=== PATIENT | female | born 1980 | race Caucasian/White ===

== ENCOUNTER 2024-05-25 17:34 | Observation (INO) ==
--- NOTE | 2024-05-25 17:58 | Emergency Department Note ---
Impression & Plan Chest pain, Elevated troponin, Syncope, D-dimer, elevated ED Provider Note NAME: RICK RIBEIRO AGE: 43 SEX: F : 1980 ARRIVES VIA: Walk-In INFORMANT: Patient ED PROVIDER(S): Kurtis Lopez DO CHIEF COMPLAINT: syncope HPI: Patient is a 43-year-old female who presents to the ER for syncopal episode. Patient notes that she woke up on the couch and does not remember what happened. She notes this has been having once a month for the past 6 months. Denies any headache or change in vision. No chest pain or shortness of breath. No nausea, vomiting or diarrhea. She notes 1 of these episodes she did bite her tongue. When she wakes up she generally does not know where she is. She has an appointment with neurology coming up. Has had an MRI of her brain per mom who is present at bedside. ADDITIONAL HISTORY OBTAINED: Per HPI Chronic Medical/Social Conditions Affecting Care: Per HPI PAST MEDICAL HISTORY:See Below PAST SURGICAL HISTORY:See Below FAMILY HISTORY:See Below SOCIAL HISTORY:See Below HOME MEDICATIONS:See Below ALLERGIES:See Below VITALS:See Below PHYSICAL EXAMINATION: GENERAL: Sitting up in bed, alert, well appearing, well nourished, no distress, non-toxic EYE EXAM: normal conjunctiva. PERRL and EOM's grossly intact. OROPHARYNX: no exudate, no erythema, lips, buccal mucosa, and tongue normal and mucous membranes are moist NECK: supple, no nuchal rigidity, no adenopathy, non-tender LUNGS: Clear to auscultation. Normal chest wall mechanics HEART: no murmurs, S1 normal and S2 normal ABDOMEN: abdomen soft, non-tender, normo-active bowel sounds, no masses, no rebound or guarding. BACK: Back is symmetrical on inspection and there is no deformity, no midline tenderness, no CVA tenderness. SKIN: no rashes and no bruising UPPER EXTREMITIES: upper extremities are grossly normal. LOWER EXTREMITIES: No pitting edema. NEURO EXAM: Normal sensorium, cranial nerves II-XII intact, normal speech, no weakness of arms, no weakness of legs. No drift. Finger to nose intact. Gross sensation intact. MEDICAL DECISION MAKING: Patient is a 43-year-old female who presents to the ER for syncopal episode in combination with chest pain following the episode. IV was established blood work is obtained. Labs show leukocytosis of 22,000. No significant anemia. D- dimer was elevated at 1700. BMP with LFTs bilirubin was unremarkable. Troponin elevated at 25. TSH unremarkable. CK was normal. UA was clean. CT of the chest showed no PEs and no infectious process. She was positive for marijuana. Alcohol negative. Patient was discussed with the hospitalist after receiving IV fluids due to the elevated troponin syncope and chest pain. Consults/Care Managements Discussions: Per [facility] Triage Nursing notes reviewed. Limited review of prior medical records performed Vital Signs: reviewed and remarkable for HTN Differential diagnosis: Differential diagnosis includes etiologies such as vasovagal event, infection, hypoglycemia, electrolyte abnormalities, cardiac sources, intracerebral event, toxicologic, neurologic, as well as others were entertained. ER treatment provided: See below Diagnostics interpreted by me include EKG and cardiac monitoring as listed below: -Cardiac Monitoring: An order was placed for continuous cardiac monitoring. The monitor shows a rate of 90 with sinus rhythm. -ECG: Sinus rhythm rate 88 Normal axis No PVCs QTc 440 -Laboratory studies:Interpreted by me as stated above in MDM and shown below. Imaging studies: Xrays: As interpreted by me: Portable AP upright 1 view of the chest shows no focal M-Trate CTs show: CT of the head was negative CT angio the chest was negative Procedures:none Critical Care: None Past Med/Surg History Problem List (Updated 05/25/24 @ 22:12 by Kurtis Lopez DO) D-dimer, elevated (Acute) Syncope (Acute) Elevated troponin (Acute) Chest pain (Acute) Social History Smoking Status: Current every day smoker Feels Safe at Home: Yes Allergies Allergies Allergy/AdvReac Type Severity Reaction Status Date / Time naproxen [From Aleve] Allergy Intermediate Anaphylaxis Verified 05/25/24 18:50 Home Meds Home Medications Medication Instructions Recorded Confirmed losartan 100 mg tablet 100 mg PO DAILY 05/25/24 05/25/24 metoprolol succinate 25 mg 25 mg PO HS 05/25/24 05/25/24 tablet,extended release 24 hr Results & Data (ED) Vital Signs Vital Signs - 24 hr 05/25/24 17:40 05/25/24 18:00 05/25/24 18:00 Temperature 36.6 C Temperature Source Temporal Artery Scan Pulse Rate 87 72 79 Pulse Rate [Apical] Respiratory Rate 20 19 Respiratory Effort / Characteristics Non-Labored Respiratory Depth Normal Blood Pressure 159/103 H 151/98 H Blood Pressure [Left Arm] Blood Pressure Mean 121 124 Blood Pressure Mean [Left Arm] Pulse Oximetry 98 Oxygen Delivery Method Room Air Sepsis Recent Fever Within 48 Hours No Sepsis New/Unexplained Change in Mental Status No Sepsis Action Taken by Nursing No Action Required 05/25/24 18:30 05/25/24 19:00 05/25/24 20:01 Temperature Temperature Source Pulse Rate 77 73 Pulse Rate [Apical] 77 Respiratory Rate 16 16 16 Respiratory Effort / Characteristics Respiratory Depth Blood Pressure 155/95 H 149/94 H Blood Pressure [Left Arm] 161/99 H Blood Pressure Mean 122 121 Blood Pressure Mean [Left Arm] 119 Pulse Oximetry 99 100 98 Oxygen Delivery Method Room Air Sepsis Recent Fever Within 48 Hours Sepsis New/Unexplained Change in Mental Status Sepsis Action Taken by Nursing 05/25/24 20:48 05/25/24 21:32 05/25/24 21:51 Temperature Temperature Source Pulse Rate 77 Pulse Rate [Apical] 88 88 Respiratory Rate 16 16 Respiratory Effort / Characteristics Respiratory Depth Blood Pressure Blood Pressure [Left Arm] 144/94 H 159/97 H Blood Pressure Mean Blood Pressure Mean [Left Arm] 110 117 Pulse Oximetry 99 96 Oxygen Delivery Method Room Air Room Air Sepsis Recent Fever Within 48 Hours Sepsis New/Unexplained Change in Mental Status Sepsis Action Taken by Nursing 05/25/24 22:02 Temperature Temperature Source Pulse Rate Pulse Rate [Apical] 78 Respiratory Rate 16 Respiratory Effort / Characteristics Respiratory Depth Blood Pressure Blood Pressure [Left Arm] 150/103 H Blood Pressure Mean Blood Pressure Mean [Left Arm] 118 Pulse Oximetry 97 Oxygen Delivery Method Sepsis Recent Fever Within 48 Hours Sepsis New/Unexplained Change in Mental Status Sepsis Action Taken by Nursing Laboratory Data 05/25/24 17:51 05/25/24 17:51 Lab Results 05/25/24 05/25/24 05/25/24 Range/Units 17:51 18:47 19:52 WBC 22.38 H (4.8-10.8) K/ul RBC 5.04 (4.20-5.40) M/uL Hgb 15.7 (12.0-16.0) g/dl Hct 45.6 (37.0-47.0) % MCV 90.5 (80.0-100.0) fL MCH 31.2 (25.0-34.0) pg MCHC 34.4 (32.0-36.0) g/dL RDW Std Deviation 41.3 (36.4-46.3) fL RDW Coeff of Spike 12.4 (11.5-14.5) % Plt Count 418 H (130-400) K/uL MPV 8.7 L (9.4-12.4) fL Immature Gran % (Auto) 0.4 % Neut % (Auto) 88.1 % Lymph % (Auto) 7.0 % [place] % (Auto) 4.2 % Eos % (Auto) 0.0 % Baso % (Auto) 0.3 % Neut # (Auto) 19.70 H (1.40-6.50) K/uL Lymph # (Auto) 1.56 (1.20-3.40) K/uL [place] # (Auto) 0.95 H (0.11-0.59) K/uL Eos # (Auto) 0.01 (0.00-0.50) K/uL Baso # (Auto) 0.07 (0.00-0.20) K/uL Immature Gran # (Auto) 0.09 (0.01-0.20) K/uL ESR 20 (0-20) mm/hr D-Dimer 1710 H* (0-500) ug/L FEU Sodium 134 L (136-145) mmol/L Potassium 3.9 (3.5-5.1) mmol/L Chloride 103 (98-107) mmol/L Carbon Dioxide 24 (21-32) mmol/L Anion Gap 7 (3-11) BUN 9 (6-23) mg/dl Creatinine 0.80 (0.6-1.2) mg/dl Est Cr Clr Drug Dosing 79.1 ml/min eGFR 93.12 BUN/Creatinine Ratio 11.3 (10-20) Glucose 109 H (70-99(Fasting)) mg/dl Calcium 9.1 (8.6-10.3) mg/dl Magnesium 2.3 (1.7-2.4) mg/dl Total Bilirubin 0.6 (0.2-1.0) mg/dl AST 13 (13-39) U/L ALT 10 (7-52) U/L Alkaline Phosphatase 53 (34-104) U/L Total Creatine Kinase 101 (26-192) U/L Troponin I High Sens 22.2 H 25.4 H (0-14) pg/ml Total Protein 7.5 (6.0-8.3) gm/dl Albumin 4.6 (3.4-5.0) gm/dl Globulin 2.9 (2.5-4.0) gm/dl Albumin/Globulin Ratio 1.6 (0.9-2) Lipase 59 (11-82) U/L Vitamin B12 182 (180-914) pg/ml Folate 5.31 L (>5.38) ng/ml TSH 0.530 (0.300-4.500) uIu/ml Urine Color Yellow Urine Appearance Clear (Clear) Urine pH 6.5 (4.5-7.5) Ur Specific [place] 1.009 (1.000-1.030) Urine Protein Negative (Negative) Urine Glucose (UA) Negative (Negative) Urine Ketones Negative (Negative) Urine Blood 2+ H (Negative) Urine Nitrite Negative (Negative) Urine Bilirubin Negative (Negative) Urine Urobilinogen Negative (Negative) Ur Leukocyte Esterase Negative (Negative) Urine WBC (Auto) 0-5 (0-5) /hpf Urine RBC (Auto) 11-20 H (0-2) /hpf U Hyaline Cast (Auto) 0-2 (0-2) /lpf U Epithel Cells (Auto) 0-2 (0-2) /hpf Urine Bacteria (Auto) None Seen (None Seen) Urine Opiates Screen Neg (Neg) Ur Methadone, Qual Neg (Neg) Urine Fentanyl Screen Neg (Neg) Urine Barbiturates Neg (Neg) Ur Phencyclidine (PCP) Neg (Neg) U Amphetamin/Meth Scrn Neg (Neg) MDMA (Ecstasy) Screen Neg (Neg) U Benzodiazepines Scrn Neg (Neg) Ur Cocaine Metabolite Neg (Neg) U Marijuana (THC) Screen Pos H (Neg) Ethyl Alcohol mg/dL < 10.0 (<10.0) mg/dl Administered Medications Discontinued Medications Sodium Chloride (Nss) 1,000 mls @ 999 mls/hr IV .Q1H1M JOSELITO Stop: 05/25/24 20:45 Last Infusion: 05/25/24 20:06 Dose: Infused Documented By: Admin: 05/25/24 18:50 Dose: 999 mls/hr Documented By: Infusion: 05/25/24 18:50 Dose: Infused Documented By: Admin: 05/25/24 18:44 Dose: 999 mls/hr Documented By: MEGAN Ioversol (Optiray 320 125ml) 119 ml IV ONCE ONE Stop: 05/25/24 19:44 Last Admin: 05/25/24 19:44 Dose: 119 ml Documented By: Bryant Imaging Data Radiologist's Impression: Chest X-Ray 05/25/24 17:44 XR chest 1V portable CLINICAL HISTORY: Chest pain, nonspecific COMPARISON STUDY: No previous studies for comparison. FINDINGS: Lung volumes are normal. Lungs are clear. There is no pneumothorax or pleural effusion. Cardiac size is normal. Mediastinal contours are normal. There is no evidence for pulmonary edema. IMPRESSION: No acute cardiopulmonary findings. ACT 112: Negative or not required by law. Electronically signed by: Jose Dover M.D. 05/25/2024 6:[address] 05/25/24 18:04 CT OF THE HEAD WITHOUT CONTRAST CLINICAL HISTORY: Headache. COMPARISON STUDY: No previous studies for comparison. CT DOSE: 547.75 mGy.cm TECHNIQUE: Helical axial images of the head were obtained without IV contrast. Automated exposure control was utilized for the study. A dose lowering technique was utilized adhering to the principles of ALARA. FINDINGS: No acute intracranial hemorrhage, midline shift or mass effect is present. The ventricular system is unremarkable. The basal cisterns are patent. No extra-axial collections are present. There are no findings to suggest acute dural sinus thrombosis or acute territorial infarct. No significant calvarial abnormalities are present. Visualized portions of the sinuses and mastoid air cells are clear. IMPRESSION: No acute intracranial findings. ACT 112: Negative or not required by law. Electronically signed by: Jose Dover M.D. 05/25/2024 6:32 PM Chest CTA 05/25/24 19:11 Exam(s): CTA CHEST IV Amt: 119 ml optiray 320 EXAM: CT Angiography Chest With Intravenous Contrast CLINICAL HISTORY: Reason for exam: PE. TECHNIQUE: Axial computed tomographic angiography images of the chest with intravenous contrast. CTDI is 14.11 mGy and DLP is 438.06 mGy-cm. Automated exposure control was utilized for the study. A dose lowering technique was utilized adhering to the principles of ALARA. MIP reconstructed images were created and reviewed. COMPARISON: No relevant prior studies available. FINDINGS: Pulmonary arteries: Unremarkable. No evidence of pulmonary embolism. Aorta: No acute findings. No aortic aneurysm or dissection. Lungs: Unremarkable. No mass. No consolidation. Pleural space: Unremarkable. No significant effusion. No pneumothorax. Heart: Unremarkable. No cardiomegaly. No significant pericardial effusion. Bones/joints: No acute fracture. No dislocation. Soft tissues: Unremarkable. Lymph nodes: Unremarkable. No enlarged lymph nodes. IMPRESSION: No evidence of pulmonary embolism. Electronically signed by: Perri Butler M.D. 05/25/24 21:46 PM Discharge Plan Visit Data Chief Complaint: Chest Pain Stated Complaint: CHEST PAIN, SYNCOPE, SWEATS ED Provider: Kurtis Lopez Discharge Problem: Chest pain, Elevated troponin, Syncope, D-dimer, elevated Forms Stand Alone Forms: [facility] [employer] Prescriptions Prescriptions: No Action metoprolol succinate 25 mg tablet extended release 24 hr 25 mg PO HS losartan 100 mg tablet 100 mg PO DAILY Referrals Referrals: PCP,NO [Physician] -
[2024-05-25 18:15] LABS: Basophils # (auto) 0.07 K/uL (0.00-0.20); Basophils % (auto) 0.3 %; Eosinophils # (auto) 0.01 K/uL (0.00-0.50); Hematocrit (blood only) 45.6 % (37.0-47.0); Hemoglobin 15.7 g/dl (12.0-16.0); Immature Granulocytes # (auto) 0.09 K/uL (0.01-0.20); Immature Granulocytes % (auto) 0.4 %; Lymphocytes # (auto) 1.56 K/uL (1.20-3.40); Mean Corpuscular Hemoglobin 31.2 pg (25.0-34.0); Mean Corpuscular Hgb Conc 34.4 g/dL (32.0-36.0); Mean Corpuscular Volume 90.5 fL (80.0-100.0); Mean Platelet Volume 8.7 fL (9.4-12.4); Monocytes # (auto) 0.95 K/uL (0.11-0.59); Monocytes % (auto) 4.2 %; Neutrophils % (auto) 88.1 %; Platelet Count 418 K/uL (130-400); RDW Coefficient of Variation 12.4 % (11.5-14.5); RDW Standard Deviation 41.3 fL (36.4-46.3); Red Blood Count 5.04 M/uL (4.20-5.40); White Blood Count 22.38 K/ul (4.8-10.8)
--- NOTE | 2024-05-25 18:17 | XRay Report ---
XR chest 1V portable CLINICAL HISTORY: Chest pain, nonspecific COMPARISON STUDY: No previous studies for comparison. FINDINGS: Lung volumes are normal. Lungs are clear. There is no pneumothorax or pleural effusion. Car diac size is normal. Mediastinal contours are normal. There is no evidence for pulmonary edema. IMPRESSION: No acute cardiopulmonary findings. ACT 112: Negative or not required by law. Electronically signed by: Jose Dover M.D. 05/25/2024 6:16 PM
[2024-05-25 18:30] LABS: Albumin Globulin Ratio 1.6 (0.9-2); Albumin Level 4.6 gm/dl (3.4-5.0); BUN Creatinine Ratio 11.3 (10-20); Bilirubin,Total 0.6 mg/dl (0.2-1.0); Calcium 9.1 mg/dl (8.6-10.3); Creatinine Clr Calc Pharmacy 79.1 ml/min; Globulin 2.9 gm/dl (2.5-4.0); Potassium 3.9 mmol/L (3.5-5.1); Total Protein 7.5 gm/dl (6.0-8.3)
--- NOTE | 2024-05-25 18:33 | CT Scan Report ---
CT OF THE HEAD WITHOUT CONTRAST CLINICAL HISTORY: Headache. COMPARISON STUDY: No previous studies for comparison. CT DOSE: 547.75 mGy.cm TECHNIQUE: Helical axial images of the head were obtained without IV contrast. Automated exposure con trol was utilized for the study. A dose lowering technique was utilized adhering to the principles o f ALARA. FINDINGS: No acute intracranial hemorrhage, midline shift or mass effect is present. The ventricular system is unremarkable. The basal cisterns are patent. No extra-axial collections are present. There are no findings to suggest acute dural sinus thrombosis or acute territorial infarct. No significant calvarial abnormalities are present. Visualized portions of the sinuses and mastoid air cells are love ar. IMPRESSION: No acute intracranial findings. ACT 112: Negative or not required by law. Electronically signed by: Jose Dover M.D. 05/25/2024 6:32 PM
[2024-05-25 18:36] LABS: Troponin I High Sensitivity 22.2 pg/ml (0-14)
[2024-05-25] MEDS: SODIUM CHLORIDE 0.9% 1,000 ML IV SCH (18:44)
[2024-05-25 18:56] LABS: D Dimer 1710 ug/L FEU (0-500)
[2024-05-25 19:32] LABS: Appearance Urine Clear (Clear); Bacteria Urine Automated None Seen (None Seen); Bilirubin Urine Negative (Negative); Blood Urine 2+ (Negative); Cast Urine Automated 0-2 /lpf (0-2); Color Urine Yellow; Epithelial Cell Urine Auto 0-2 /hpf (0-2); Glucose Urine UA Negative (Negative); Ketones Urine Negative (Negative); Leukocyte Esterase Urine Negative (Negative); Nitrite Urine Negative (Negative); Protein Urine Negative (Negative); Specific Gravity Urine 1.009 (1.000-1.030); Urobilinogen Urine Negative (Negative); WBC Urine Automated 0-5 /hpf (0-5); pH Urine 6.5 (4.5-7.5)
[2024-05-25] MEDS: OPTIRAY 320 125ml IV ONE (19:44)
--- NOTE | 2024-05-25 21:04 | History & Physical Report ---
Date of Service May 25, 2024 Assessment & Plan (1) Episodic memory loss: (2) B12 deficiency: (3) Folic acid deficiency: (4) Elevated troponin: (5) D-dimer, elevated: (6) Tobacco use disorder: (7) Hypertension: Plan Episodic memory loss- The patient reports that since she had COVID 3 years ago, she lost her sense of taste and smell. However, when she has these episodes, they are sometimes preceded by an odd taste or smell This morning she says she felt weird, had the odd taste and smell sensation, and got a generalized headache and felt like she was having hot flashes. Patient reports episodes approximately monthly for the past 6 to 8 months She cannot tell the duration of events, and has no recollection of what happened during these intervals. She denies alcohol use Urine drug screen is positive for marijuana that she reports is medical marijuana She does have significant tobacco use daily Laboratories added this evening are positive for B12 and folate deficiencies Tickborne studies have been added and are pending CT scan of head is negative CTA chest is negative for PE or other findings Chest x-ray is negative MRI of brain without contrast performed at [facility] on 05/23 is negative TSH is added and negative MARY is added and pending ESR is top normal EEG is ordered Differential including but not limited to: Seizure, transient global amnesia, TIA, cardiac dysrhythmia Consult neurology Elevated troponin/hypertension- The patient will be admitted to telemetry for serial cardiac enzymes, serial EKG's, cardiac rhythm monitoring and a 2-D echocardiogram with Dopplers. Continue losartan and metoprolol succinate Troponin 22.2, follow-up 25.4 EKG with normal sinus rhythm at 88, no acute ST-T changes Patient did receive normal saline 2 L bolus from the ED Vitamin B12 deficiency- Start cyanocobalamin 1000 mcg IM daily, to be converted to sublingual as outpatient Folic acid deficiency- Start folic acid 1 mg p.o. daily, to be continued as an outpatient Tobacco use disorder- Cessation counseling Medical marijuana use- Hold during admission Advised cessation History of Present Illness Chief Complaint: The patient presents to the emergency department with her most recent recurrent episode today of episodes of loss of awareness of the passage of time, unclear if a syncopal episode, which she reports have occurred about once a month over the past 6 to 8 months. These episodes of an unwitnessed. She cannot say how long they last for, there is no loss of bowel or bladder control. No warning of the oncoming event. Primary Care Provider: Javi Granger The patient is a 43-year-old female with a past medical history including hypertension, and multiple episodes as noted above. She had presented to her PCP earlier in the week, did arrange for an MRI of brain to be performed at [facility] 2 days ago. We have gotten a copy of the report, and the MRI is negative. Allergies Allergy/AdvReac Type Severity Reaction Status Date / Time naproxen [From Aleve] Allergy Intermediate Anaphylaxis Verified 05/25/24 18:50 Home Medications Medication Instructions Recorded Confirmed Type losartan 100 mg tablet 100 mg PO DAILY 05/25/24 05/25/24 History metoprolol succinate 25 mg 25 mg PO HS 05/25/24 05/25/24 History tablet,extended release 24 hr Past Med/Surg History Problem List (Updated 05/26/24 @ 01:49 by Osei Browne MD) Hypertension Tobacco use disorder Folic acid deficiency B12 deficiency Episodic memory loss D-dimer, elevated (Acute) Syncope (Acute) Elevated troponin (Acute) Chest pain (Acute) Social History Smoking Status: Current every day smoker Tobacco Type: Cigarettes Do You Dip or Chew Tobacco: No; Hx Alcohol Use: No Hx Substance Use: Yes (medical marijuana) Preferred Language: Bengali Retail Associate Manager Bilingual Required: No Beliefs That Will Affect Care: None Current Living Situation: Spouse Feels Safe at Home: Yes Assistive Devices: None Review of Systems Review of Systems: The patient denies chest pain, palpitations, shortness of breath, dyspnea on exertion, cough, lower extremity swelling, sore throat, fevers, chills, sweats, nausea, vomiting, diarrhea , constipation, abdominal pain, pelvic pain, blood in urine or stool, dysuria, urinary frequency or urgency, lightheadedness, dizziness, headache, rash, abnormal bruising or bleeding, imbalance, focal weakness, numbness or tingling in arms or legs, generalized a rthralgias or myalgias, back or neck pain, or night sweats. The review of systems is otherwise negative other than for that already noted above, and at least 10 systems have been reviewed. Physical Exam Physical Exam: The patient is awake, alert and oriented 3, well developed and well nourished, normocephalic and atraumatic, lying in bed and in no acute distress. HEENT--PERRL, EOMI, mucous membranes and oropharynx normal Neck--supple. No JVD. No bruits. Thyroid normal, trachea midline, no adeno serenity. Heart--normal S1 and S2. No murmurs, rubs or gallops. Lungs--clear bilaterally, no respiratory distress, no accessory muscle use. Abdomen--normal bowel sounds and soft. Nontender. Nondistended, no hernias or masses, no organomegaly. Extremities--no cyanosis or clubbing. No edema. There are good distal pulses b/l. Dermatologic--normal skin turgor, normal color, no abnormal lymph nodes, no rash. Neurologic--cranial nerves II through XII grossly intact. Rheumatologic--normal range of motion. Psychiatric--normal affect. Results & Data Results & Data Vital Signs (Past 12 Hours) Vital Signs Temp Pulse Pulse Resp BP BP Pulse Ox 05/25/24 20:48 88 16 144/94 H 99 05/25/24 20:01 77 16 161/99 H 98 05/25/24 19:00 73 16 149/94 H 100 05/25/24 18:30 77 16 155/95 H 99 05/25/24 18:00 79 19 151/98 H 05/25/24 18:00 72 05/25/24 17:40 36.6 C 87 20 159/103 H 98 O2 Del Method 05/25/24 20:48 Room Air 05/25/24 20:01 Room Air 05/25/24 19:00 05/25/24 18:30 05/25/24 18:00 05/25/24 18:00 05/25/24 17:40 Room Air Laboratory Results Laboratory Results WBC 22.38 K/ul (4.8-10.8) H 05/25/24 17:51 RBC 5.04 M/uL (4.20-5.40) 05/25/24 17:51 Hgb 15.7 g/dl (12.0-16.0) 05/25/24 17:51 Hct 45.6 % (37.0-47.0) 05/25/24 17:51 MCV 90.5 fL (80.0-100.0) 05/25/24 17:51 MCH 31.2 pg (25.0-34.0) 05/25/24 17:51 MCHC 34.4 g/dL (32.0-36.0) 05/25/24 17:51 RDW Std Deviation 41.3 fL (36.4-46.3) 05/25/24 17:51 RDW Coeff of Spike 12.4 % (11.5-14.5) 05/25/24 17:51 Plt Count 418 K/uL (130-400) H 05/25/24 17:51 MPV 8.7 fL (9.4-12.4) L 05/25/24 17:51 Immature Gran % (Auto) 0.4 % 05/25/24 17:51 Neut % (Auto) 88.1 % 05/25/24 17:51 Lymph % (Auto) 7.0 % 05/25/24 17:51 [place] % (Auto) 4.2 % 05/25/24 17:51 Eos % (Auto) 0.0 % 05/25/24 17:51 Baso % (Auto) 0.3 % 05/25/24 17:51 Neut # (Auto) 19.70 K/uL (1.40-6.50) H 05/25/24 17:51 Lymph # (Auto) 1.56 K/uL (1.20-3.40) 05/25/24 17:51 [place] # (Auto) 0.95 K/uL (0.11-0.59) H 05/25/24 17:51 Eos # (Auto) 0.01 K/uL (0.00-0.50) 05/25/24 17:51 Baso # (Auto) 0.07 K/uL (0.00-0.20) 05/25/24 17:51 Immature Gran # (Auto) 0.09 K/uL (0.01-0.20) 05/25/24 17:51 ESR 20 mm/hr (0-20) 05/25/24 17:51 D-Dimer 1710 ug/L FEU (0-500) H* 05/25/24 17:51 Sodium 134 mmol/L (136-145) L 05/25/24 17:51 Potassium 3.9 mmol/L (3.5-5.1) 05/25/24 17:51 Chloride 103 mmol/L (98-107) 05/25/24 17:51 Carbon Dioxide 24 mmol/L (21-32) 05/25/24 17:51 Anion Gap 7 (3-11) 05/25/24 17:51 BUN 9 mg/dl (6-23) 05/25/24 17:51 Creatinine 0.80 mg/dl (0.6-1.2) 05/25/24 17:51 Est Cr Clr Drug Dosing 79.1 ml/min 05/25/24 17:51 eGFR 93.12 05/25/24 17:51 BUN/Creatinine Ratio 11.3 (10-20) 05/25/24 17:51 Glucose 109 mg/dl (70-99(Fasting)) H 05/25/24 17:51 Calcium 9.1 mg/dl (8.6-10.3) 05/25/24 17:51 Magnesium 2.3 mg/dl (1.7-2.4) 05/25/24 17:51 Total Bilirubin 0.6 mg/dl (0.2-1.0) 05/25/24 17:51 AST 13 U/L (13-39) 05/25/24 17:51 ALT 10 U/L (7-52) 05/25/24 17:51 Alkaline Phosphatase 53 U/L (34-104) 05/25/24 17:51 Total Creatine Kinase 101 U/L (26-192) 05/25/24 17:51 Troponin I High Sens 25.4 pg/ml (0-14) H 05/25/24 19:52 Total Protein 7.5 gm/dl (6.0-8.3) 05/25/24 17:51 Albumin 4.6 gm/dl (3.4-5.0) 05/25/24 17:51 Globulin 2.9 gm/dl (2.5-4.0) 05/25/24 17:51 Albumin/Globulin Ratio 1.6 (0.9-2) 05/25/24 17:51 Lipase 59 U/L (11-82) 05/25/24 17:51 Vitamin B12 182 pg/ml (180-914) 05/25/24 17:51 Folate 5.31 ng/ml (>5.38) L 05/25/24 17:51 TSH 0.530 uIu/ml (0.300-4.500) 05/25/24 17:51 Urine Color Yellow 05/25/24 18:47 Urine Appearance Clear (Clear) 05/25/24 18:47 Urine pH 6.5 (4.5-7.5) 05/25/24 18:47 Ur Specific [place] 1.009 (1.000-1.030) 05/25/24 18:47 Urine Protein Negative (Negative) 05/25/24 18:47 Urine Glucose (UA) Negative (Negative) 05/25/24 18:47 Urine Ketones Negative (Negative) 05/25/24 18:47 Urine Blood 2+ (Negative) H 05/25/24 18:47 Urine Nitrite Negative (Negative) 05/25/24 18:47 Urine Bilirubin Negative (Negative) 05/25/24 18:47 Urine Urobilinogen Negative (Negative) 05/25/24 18:47 Ur Leukocyte Esterase Negative (Negative) 05/25/24 18:47 Urine WBC (Auto) 0-5 /hpf (0-5) 05/25/24 18:47 Urine RBC (Auto) 11-20 /hpf (0-2) H 05/25/24 18:47 U Hyaline Cast (Auto) 0-2 /lpf (0-2) 05/25/24 18:47 U Epithel Cells (Auto) 0-2 /hpf (0-2) 05/25/24 18:47 Urine Bacteria (Auto) None Seen (None Seen) 05/25/24 18:47 Urine Opiates Screen Neg (Neg) 05/25/24 18:47 Ur Methadone, Qual Neg (Neg) 05/25/24 18:47 Urine Fentanyl Screen Neg (Neg) 05/25/24 18:47 Urine Barbiturates Neg (Neg) 05/25/24 18:47 Ur Phencyclidine (PCP) Neg (Neg) 05/25/24 18:47 U Amphetamin/Meth Scrn Neg (Neg) 05/25/24 18:47 MDMA (Ecstasy) Screen Neg (Neg) 05/25/24 18:47 U Benzodiazepines Scrn Neg (Neg) 05/25/24 18:47 Ur Cocaine Metabolite Neg (Neg) 05/25/24 18:47 U Marijuana (THC) Screen Pos (Neg) H 05/25/24 18:47 Ethyl Alcohol mg/dL < 10.0 mg/dl (<10.0) 05/25/24 17:51 Anaplasma Smear See Comment 05/25/24 17:51 Babesia Smear See Comment 05/25/24 17:51 Impressions Chest X-Ray 05/25/24 17:44 XR chest 1V portable CLINICAL HISTORY: Chest pain, nonspecific COMPARISON STUDY: No previous studies for comparison. FINDINGS: Lung volumes are normal. Lungs are clear. There is no pneumothorax or pleural effusion. Cardiac size is normal. Mediastinal contours are normal. There is no evidence for pulmonary edema. IMPRESSION: No acute cardiopulmonary findings. ACT 112: Negative or not required by law. Electronically signed by: Jose Dover M.D. 05/25/2024 6:[address] 05/25/24 18:04 CT OF THE HEAD WITHOUT CONTRAST CLINICAL HISTORY: Headache. COMPARISON STUDY: No previous studies for comparison. CT DOSE: 547.75 mGy.cm TECHNIQUE: Helical axial images of the head were obtained without IV contrast. Automated exposure control was utilized for the study. A dose lowering technique was utilized adhering to the principles of ALARA. FINDINGS: No acute intracranial hemorrhage, midline shift or mass effect is present. The ventricular system is unremarkable. The basal cisterns are patent. No extra-axial collections are present. There are no findings to suggest acute dural sinus thrombosis or acute territorial infarct. No significant calvarial abnormalities are present. Visualized portions of the sinuses and mastoid air cells are clear. IMPRESSION: No acute intracranial findings. ACT 112: Negative or not required by law. Electronically signed by: Jose Dover M.D. 05/25/2024 6:32 PM Chest CTA 05/25/24 19:11 Exam(s): CTA CHEST IV Amt: 119 ml optiray 320 EXAM: CT Angiography Chest With Intravenous Contrast CLINICAL HISTORY: Reason for exam: PE. TECHNIQUE: Axial computed tomographic angiography images of the chest with intravenous contrast. CTDI is 14.11 mGy and DLP is 438.06 mGy-cm. Automated exposure control was utilized for the study. A dose lowering technique was utilized adhering to the principles of ALARA. MIP reconstructed images were created and reviewed. COMPARISON: No relevant prior studies available. FINDINGS: Pulmonary arteries: Unremarkable. No evidence of pulmonary embolism. Aorta: No acute findings. No aortic aneurysm or dissection. Lungs: Unremarkable. No mass. No consolidation. Pleural space: Unremarkable. No significant effusion. No pneumothorax. Heart: Unremarkable. No cardiomegaly. No significant pericardial effusion. Bones/joints: No acute fracture. No dislocation. Soft tissues: Unremarkable. Lymph nodes: Unremarkable. No enlarged lymph nodes. IMPRESSION: No evidence of pulmonary embolism. Electronically signed by: Perri Butler M.D. 05/25/24 21:46 PM Code Status & VTE Plan Code Status Full code VTE Prophylaxis Plan VTE Prophylaxis will be ordered: Yes PG Care Time/CCT Total # of Minutes Spent Total Time Spent with Patient: Total time spent is greater than 50% in coordination of care (as documented) at patient's floor/unit and/or counseling patient: Coding Level of Care Code 45902 INT INP/OBS CARE 3/75MIN Diagnoses Episodic memory loss R41.3 B12 deficiency E53.8 Folic acid deficiency E53.8 Elevated troponin R79.89 D-dimer, elevated R79.89 Tobacco use disorder F17.200 Hypertension I10
[2024-05-25 21:32] LABS: Magnesium 2.3 mg/dl (1.7-2.4)
--- NOTE | 2024-05-25 21:47 | CT Scan Report ---
Exam(s): CTA CHEST IV Amt: 119 ml optiray 320 EXAM: CT Angiography Chest With Intravenous Contrast CLINICAL HISTORY: Reason for exam: PE. TECHNIQUE: Axial computed tomographic angiography images of the chest with intravenous contrast. CTDI is 14.11 mGy and DLP is 438.06 mGy-cm. Automated exposure control was utilized for the study. A dose lowering technique was utilized adhering to the principles of ALARA. MIP reconstructed images were created and reviewed. COMPARISON: No relevant prior studies available. FINDINGS: Pulmonary arteries: Unremarkable. No evidence of pulmonary embolism. Aorta: No acute findings. No aortic aneurysm or dissection. Lungs: Unremarkable. No mass. No consolidation. Pleural space: Unremarkable. No significant effusion. No pneumothorax. Heart: Unremarkable. No cardiomegaly. No significant pericardial effusion. Bones/joints: No acute fracture. No dislocation. Soft tissues: Unremarkable. Lymph nodes: Unremarkable. No enlarged lymph nodes. IMPRESSION: No evidence of pulmonary embolism. Electronically signed by: Perri Butler M.D. 05/25/24 21:46 PM
[2024-05-25 21:49] LABS: Thyroid Stimulating Hormone 0.53 uIu/ml (0.300-4.500)
[2024-05-25 22:05] LABS: Amphetamines+Metham, Urine Neg (Neg); Barbiturates, Urine Neg (Neg); Benzodiazepine, Urine Neg (Neg); Cocaine, Urine Neg (Neg); Fentanyl, Urine Neg (Neg); MDMA (Ecstacy), Urine Neg (Neg); Marijuana, Urine Pos (Neg); Methadone, Urine Neg (Neg); Opiate, Urine Neg (Neg); Phencyclidine, Urine Neg (Neg)
[2024-05-25 22:08] LABS: Folate (Folic Acid),Ser orPlas 5.31 ng/ml (>5.38)
[2024-05-26] MEDS: HEPARIN SOD 5,000 UNIT/0.5 ML VIAL SQ SCH (00:34)
[2024-05-26] MEDS: METOPROLOL SUCC 25MG EXT REL TAB PO SCH (00:35)
[2024-05-26] MEDS: ACETAMINOPHEN 325 MG TAB PO PRN (03:57)
[2024-05-26 04:15] VITALS: RESP 18
[2024-05-26 06:08] LABS: Albumin Level 3.6 gm/dl (3.4-5.0); BUN Creatinine Ratio 8.8 (10-20); Calcium 7.7 mg/dl (8.6-10.3); Creatinine Clr Calc Pharmacy 111.9 ml/min; Phosphorus 1.8 mg/dl (2.5-4.9); Potassium 3.3 mmol/L (3.5-5.1)
[2024-05-26 06:15] LABS: Troponin I High Sensitivity 11.2 pg/ml (0-14)
[2024-05-26 06:34] LABS: Basophils # (auto) 0.05 K/uL (0.00-0.20); Basophils % (auto) 0.3 %; Eosinophils # (auto) 0.06 K/uL (0.00-0.50); Eosinophils % (auto) 0.4 %; Hematocrit (blood only) 37.2 % (37.0-47.0); Hemoglobin 12.8 g/dl (12.0-16.0); Immature Granulocytes # (auto) 0.06 K/uL (0.01-0.20); Immature Granulocytes % (auto) 0.4 %; Lymphocytes # (auto) 2.94 K/uL (1.20-3.40); Mean Corpuscular Hgb Conc 34.4 g/dL (32.0-36.0); Mean Corpuscular Volume 90.1 fL (80.0-100.0); Mean Platelet Volume 8.9 fL (9.4-12.4); Monocytes % (auto) 6.5 %; Neutrophils # (auto) 11.37 K/uL (1.40-6.50); Neutrophils % (auto) 73.4 %; Platelet Count 325 K/uL (130-400); RDW Coefficient of Variation 12.5 % (11.5-14.5); Red Blood Count 4.13 M/uL (4.20-5.40); White Blood Count 15.48 K/ul (4.8-10.8)
--- NOTE | 2024-05-26 07:11 | Hospitalist Progress Note ---
Date of Service May 26, 2024 Assessment & Plan (1) B12 deficiency: (2) Folic acid deficiency: (3) Tobacco use disorder: (4) Elevated troponin: (5) D-dimer, elevated: (6) Hypertension: Plan Episodic memory loss- The patient reports that since she had COVID 3 years ago, she lost her sense of taste and smell. However, when she has these episodes, they are sometimes preceded by an odd taste or smell This morning she says she felt weird, had the odd taste and smell sensation, and got a generalized headache and felt like she was having hot flashes. Patient reports episodes approximately monthly for the past 6 to 8 months She cannot tell the duration of events, and has no recollection of what happened during these intervals. She denies alcohol use Urine drug screen is positive for marijuana that she reports is medical marijuana She does have significant tobacco use daily Laboratories added this evening are positive for B12 and folate deficiencies Tickborne studies have been added and are pending CT scan of head is negative CTA chest is negative for PE or other findings Chest x-ray is negative MRI of brain without contrast performed at [facility] on 05/23 is negative TSH is added and negative MARY is added and pending ESR is top normal EEG is ordered Differential including but not limited to: Seizure, transient global amnesia, TIA, cardiac dysrhythmia Consult neurology Elevated troponin/hypertension- The patient will be admitted to telemetry for serial cardiac enzymes, serial EKG's, cardiac rhythm monitoring and a 2-D echocardiogram with Dopplers. Continue losartan and metoprolol succinate Troponin 22.2, follow-up 25.4 EKG with normal sinus rhythm at 88, no acute ST-T changes Patient did receive normal saline 2 L bolus from the ED Vitamin B12 deficiency- Start cyanocobalamin 1000 mcg IM daily, to be converted to sublingual as outpatient Folic acid deficiency- Start folic acid 1 mg p.o. daily, to be continued as an outpatient Tobacco use disorder- Cessation counseling Medical marijuana use- Hold during admission Advised cessation Admission and Anticipated Discharge Date Admission Date: May 25, 2024 Results & Data Results & Data Vital Signs (Past 12 Hours) Vital Signs Temp Pulse Pulse Resp BP Pulse Ox O2 Del Method 05/26/24 04:00 36.9 C 85 18 149/74 H 96 Room Air 05/25/24 23:45 36.8 C 81 16 163/96 H 97 Room Air 05/25/24 23:30 67 05/25/24 22:02 78 16 150/103 H 97 05/25/24 21:51 77 05/25/24 21:32 88 16 159/97 H 96 Room Air 05/25/24 20:48 88 16 144/94 H 99 Room Air 05/25/24 20:01 77 16 161/99 H 98 Room Air
[2024-05-26] MEDS ORDERED: POTASSIUM PHOS 3 MMOL/1 ML INFUSION IV STA (07:32)
[2024-05-26 07:46] VITALS: BP 139/77; PULSE 78; TEMP 98.1; O2SAT 98
[2024-05-26] MEDS: LOSARTAN POTASSIUM 50 MG TAB PO SCH (08:35)
[2024-05-26] MEDS: POT PHOSPHATE MONOBASIC W/ SOD TAB PO SCH (08:36)
[2024-05-26] MEDS: CYANOCOBALAMIN 1000 MCG/ML VIAL IM SCH (08:36)
[2024-05-26] MEDS: POTASSIUM CHLORIDE CRTAB 20 MEQ TABCR PO STA (08:36)
[2024-05-26] MEDS: FOLIC ACID 1 MG TAB PO SCH (08:37)
--- NOTE | 2024-05-26 09:26 | Neurology Consultation ---
Date of Consultation May 26, 2024 Assessment & Plan (1) Transient alteration of awareness: History of Present Illness Attending Physician: Yesy House, History of Present Illness pt this morning feeling well. EEG this morning normal. pt wants to go home. recent mri brain negative. chart reviewed. admission HPI: Patient is a 43-year-old female who presents to the ER for syncopal episode. Patient notes that she woke up on the couch and does not remember what happened. She notes this has been having once a month for the past 6 months. Denies any headache or change in vision. No chest pain or shortness of breath. No nausea, vomiting or diarrhea. She notes 1 of these episodes she did bite her tongue. When she wakes up she generally does not know where she is. She has an appointment with neurology coming up. Has had an MRI of her brain per mom who is present at bedside. 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 Coord: intact FNT b/l DTR: 2+ sym b/l Gait: intact per pt. Impression: 43 yo female with chronic transient alteration of awareness for about 6 months in setting of anxiety, chronic pain syndrome. No clear etiology at this point. pt does take chronic marijuana for pain. EEG today negative. DDx including nonepileptic spells. Recommendations: EEG normal. pt has pending appt with neurology no need for further work up at this point. ok for discharge. Chart reviewed I have spent more than 50% educating patient about potential diagnosis and neurological evaluation and coordinating care with patient's treatment team. Total time spent (including chart review and coordination of care): 45 min (this includes chart review). Results & Data Vital Signs (Past 12 Hours) Vital Signs Temp Pulse Pulse Resp BP Pulse Ox O2 Del Method 05/26/24 07:46 36.7 C 78 18 139/77 98 Room Air 05/26/24 07:30 76 05/26/24 04:00 36.9 C 85 18 149/74 H 96 Room Air 05/25/24 23:45 36.8 C 81 16 163/96 H 97 Room Air 05/25/24 23:30 67 05/25/24 22:02 78 16 150/103 H 97 05/25/24 21:51 77 05/25/24 21:32 88 16 159/97 H 96 Room Air PG Care Time/CCT Total # of Minutes Spent Total Time Spent with Patient: Total time spent is greater than 50% in coordination of care (as documented) at patient's floor/unit and/or counseling patient: Coding Level of Care Code 31506 IN/OBS CONSULT LVL 3,45M Diagnoses Transient alteration of awareness R40.4
--- NOTE | 2024-05-26 09:28 | Electroencephalogram ---
EEG Procedure Note Date of Service May 26, 2024 Start / End Times Start Time: 620 End Time: 640 Referring Physician selvin parosns History memory loss Home Medication List Medication Instructions Recorded Confirmed Type losartan 100 mg tablet 100 mg PO DAILY 05/25/24 05/25/24 History metoprolol succinate 25 mg 25 mg PO HS 05/25/24 05/25/24 History tablet,extended release 24 hr Inpatient Medication List Acetaminophen (Acetaminophen 325 Mg Tab) 650 mg PO Q4H PRN PRN Reason: Pain or Fever Stop: 06/24/24 23:29 Last Admin: 05/26/24 03:57 Dose: 650 mg Documented By: ROYER Cyanocobalamin (Cyanocobalamin 1000 Mcg/Ml Vial) 1,000 mcg IM QAM [facility] Stop: 06/25/24 08:59 Last Admin: 05/26/24 08:36 Dose: 1,000 mcg Documented By: ALAN Folic Acid (Folic Acid 1 Mg Tab) 1 mg PO QAM [facility] Stop: 06/25/24 08:59 Last Admin: 05/26/24 08:37 Dose: 1 mg Documented By: ALAN Heparin Sodium (Porcine) (Heparin Sod 5,000 Unit/0.5 Ml Vial) 5,000 units SQ Q12 [facility] Stop: 06/24/24 23:29 Last Admin: 05/26/24 08:36 Dose: 5,000 units Documented By: Admin: 05/26/24 00:34 Dose: 5,000 units Documented By: ROYER Losartan Potassium (Losartan Potassium 50 Mg Tab) 100 mg PO DAILY [facility] Stop: 06/25/24 08:59 Last Admin: 05/26/24 08:35 Dose: 100 mg Documented By: ALAN Metoprolol Succinate (Metoprolol Succ 25mg Ext Rel Tab) 25 mg PO HS [facility] Stop: 06/24/24 23:29 Last Admin: 05/26/24 00:35 Dose: 25 mg Documented By: ROYER Potassium Phosphate (Pot Phosphate Monobasic W/ Sod Tab) 1 tab PO Q8H [facility] Stop: 05/27/24 08:01 Last Admin: 05/26/24 08:36 Dose: 1 tab Documented By: ALAN Discontinued Medications Sodium Chloride (Nss) 1,000 mls @ 999 mls/hr IV .Q1H1M [facility] Stop: 05/25/24 20:45 Last Infusion: 05/25/24 20:06 Dose: Infused Documented By: Admin: 05/25/24 18:50 Dose: 999 mls/hr Documented By: Infusion: 05/25/24 18:50 Dose: Infused Documented By: Admin: 05/25/24 18:44 Dose: 999 mls/hr Documented By: MEGAN Ioversol (Optiray 320 125ml) 119 ml IV ONCE ONE Stop: 05/25/24 19:44 Last Admin: 05/25/24 19:44 Dose: 119 ml Documented By: AUDREY Potassium Chloride (Potassium Chloride Crtab 20 Meq Tabcr) 40 meq PO NOW STA Stop: 05/26/24 07:29 Last Admin: 05/26/24 08:36 Dose: 40 meq Documented By: ALAN Description This is a 21 electrode EEG with a single channel dedicated to limited EKG. The electrodes were placed in accordance with the International 10-20 system. Interpretation This is a 21 electrode EEG with a single channel dedicated to limited EKG. The electrodes were placed in accordance with the International 10-20 system. There is a posterior dominant rhythm of 9 Hz which is symmetrically distributed and attenuates with eye opening. There is a normal anterior to posterior organization. Photic stimulation: unremarkable Hyperventilation performed: ___ unremarkable; _x_ not performed. There is no focal slowing. No epileptiform abnormalities. Sleep stage: _x_ not achieved, ___drowsy state, ___ Stage II, ___ REM stage achieved. Interpretation Normal-appearing awake EEG. A normal EEG does not completely exclude a diagnosis of epilepsy. [facility] EEG Procedure Codes Indication for Procedure (1) Transient alteration of awareness: Neurology Neurology: 35759 EEG include record awake & drowsy
--- NOTE | 2024-05-26 11:22 | Discharge Summary ---
Date of Service May 26, 2024 Admission HPI Per Admitting Provider The patient is a 43-year-old female with a past medical history including hypertension, and multiple episodes as noted above. She had presented to her PCP earlier in the week, did arrange for an MRI of brain to be performed at [facility] 2 days ago. We have gotten a copy of the report, and the MRI is negative. Admission Exam Per Admitting Provider The patient is awake, alert and oriented 3, well developed and well nourished, normocephalic and atraumatic, lying in bed and in no acute distress. HEENT--PERRL, EOMI, mucous membranes and oropharynx normal Neck--supple. No JVD. No bruits. Thyroid normal, trachea midline, no adenopathy. Heart--normal S1 and S2. No murmurs, rubs or gallops. Lungs--clear bilaterally, no respiratory distress, no accessory muscle use. Abdomen--normal bowel sounds and soft. Nontender. Nondistended, no hernias or masses, no organomegaly. Extremities--no cyanosis or clubbing. No edema. There are good distal pulses b/l. Dermatologic--normal skin turgor, normal color, no abnormal lymph nodes, no rash. Neurologic--cranial nerves II through XII grossly intact. Rheumatologic--normal range of motion. Psychiatric--normal affect. Principal Diagnosis Episodic memory loss Discharge Exam Constitutional: well-appearing, no acute distress HEENT: NCAT, no conjunctival injection CV: extremities well-perfused, no LE edema Resp: no increased work of breathing GI: nondistended MSK: no gross deformities appreciated Skin: warm, dry, no rash appreciated Neuro: alert, oriented, no focal neurologic deficit appreciated Discharge Data Allergies Allergy/AdvReac Type Severity Reaction Status Date / Time naproxen [From Aleve] Allergy Intermediate Anaphylaxis Verified 05/25/24 18:50 Consultations 05/25/24 19:24 ED Decision to Admit Stat 05/25/24 23:30 Consult Neurology Routine Ordered Studies 05/25/24 18:04 CT head/brain wo con Stat 05/25/24 19:11 CT angio chest PE protocol Stat Hospital Course (1) B12 deficiency: (2) Folic acid deficiency: (3) Tobacco use disorder: (4) Elevated troponin: (5) D-dimer, elevated: (6) Hypertension: Plan The patient reports that since she had COVID 3 years ago, she lost her sense of taste and smell. However, when she has these episodes, they are sometimes preceded by an odd taste or smell This morning she says she felt weird, had the odd taste and smell sensation, and got a generalized headache and felt like she was having hot flashes. Patient reports episodes approximately monthly for the past 6 to 8 months She cannot tell the duration of events, and has no recollection of what happened during these intervals. She denies alcohol use Urine drug screen is positive for marijuana that she reports is medical marijuana She does have significant tobacco use daily Laboratories added this evening are positive for B12 and folate deficiencies Tickborne studies have been added and are pending CT scan of head is negative CTA chest is negative for PE or other findings Chest x-ray is negative MRI of brain without contrast performed at [facility] on 05/23 is negative ESR is top normal EEG normal Differential including but not limited to: Seizure, transient global amnesia, TIA, cardiac dysrhythmia Consult neurology Elevated troponin/hypertension- The patient will be admitted to telemetry for serial cardiac enzymes, serial EKG's, cardiac rhythm monitoring and a 2-D echocardiogram with Dopplers. Continue losartan and metoprolol succinate Troponin 22.2, follow-up 25.4 EKG with normal sinus rhythm at 88, no acute ST-T changes Patient did receive normal saline 2 L bolus from the ED Vitamin B12 deficiency- Start cyanocobalamin 1000 mcg IM daily, to be converted to sublingual as outpatient Folic acid deficiency- Start folic acid 1 mg p.o. daily, to be continued as an outpatient Tobacco use disorder- Cessation counseling Medical marijuana use- Hold during admission Advised cessation Total Time Total Time Spent Total Time Spent (In Minutes): 32 min Total Time Includes: Examination of the Patient, Discharge Planning and Other Discharge Plan Discharge Items Patient Disposition: Home - Self-Care Reason For Visit: EPISODES OF ACUTE MEMORY LOSS Discharge Diagnosis: EPISODES OF ACUTE MEMORY LOSS Activity: Resume your previous activity Activity Comment: as tolerated Non-emergency contact: Primary Care Provider and Neurologist Call non-emergency contact if: you have any medication questions and your symptoms worsen Follow-up/Referrals: Javi Granger [Primary Care Provider] - (PLEASE CALL YOUR PRIMARY CARE PROVIDER TO SCHEDULE A HOSPITAL DISCHARGE FOLLOW-UP APPOINTMENT WITHIN 7-10 DAYS) Diet: Regular Addtl Attending Provider Instructions: You were admitted to the hospital for memory loss. A discharge summary will be sent to your primary care physician to ensure continuity of care. Please bring this discharge summary with you to your next office appointment so that your provider can review it at that time. Follow-up appointments: Make a follow-up appointment with your PCP within the next week. It is very important that you follow up with them shortly after discharge from the hospital. You have an appointment with Bhavana Whitley PA-C on 07/07/2024 at 10:00. Keep all your follow-up appointments as already scheduled. If you cannot make an appointment, notify your provider. Take your medications as instructed; do not skip a dose of your medicines. Make sure all of your doctors know every medicine you are taking (including [id number] medicines, vitamins, and supplements). Call your primary care provider before taking any new medicines (including razu-zrp-gqptqpy medicines, vitamins, and supplements), because some of these may interact with your current medications, or may make your symptoms worse. Tell your primary care provider if you cannot afford your medications. CONTACT YOUR PRIMARY CARE PROVIDER if you experience any of the following: Further episodes of memory loss Difficulty following your treatment plan, or difficulty taking medications CALL 911 OR GO TO THE EMERGENCY DEPARTMENT if you experience any of the following: Sudden, severe abdominal pain or nausea/vomiting Severe chest pain, or chest pain that radiates (moves) to your jaw or arm Sudden, severe shortness of breath or difficulty breathing Thank you for allowing us to participate in your care. Pending Studies at Discharge: No Stand-Alone Forms: [facility], Smoking Cessation Medications and DC Order Prescriptions: Continued metoprolol succinate 25 mg tablet extended release 24 hr 25 mg PO HS losartan 100 mg tablet 100 mg PO DAILY Discharge Orders: Discharge Order (Routine); Ordered 05/26/24 Ordered By: Otoniel Perera Admission Data Admit Date/Time: 05/25/24 21:03 Attending Provider: Yesy House Admit Provider: Osei Browne Primary Care Provider: Javi Granger Other Providers: Osei Browne; Kwabena Wu Other Interventions: Discharge Summary Assessment (RN) Last Done: 05/26/24 11:56 Supervising Physician Co-Signing Physician Notes I personally examined the patient and verified rivas points of history and exam, discussed case, and agree with decision making and plan documented by Dr. Perera. Patient is a 43-year-old female presenting with episodic unwitnessed syncopal events that occur on a near monthly basis. Patient states that yesterday prior to seeking medical attention, she woke up and did not feel well, ultimately had a reported syncopal episode where she loses consciousness. Patient reports she had a severe COVID infection 4 years prior that continues to affect her olfactory sense. On exam here, patient had an EEG that was reported to be normal, in addition she had a brain MRI performed at outside medical hospital that was negative for acute changes. Patient advised to follow-up with neurology as scheduled. Recommended she keeps timeline of her episodes to review at follow-up. Patient is understanding and will follow up with PCP as well. Resident Activity Tracking Resident Involvement: Resident Care Provided Care Provided: Adult Hospital Medicine
--- NOTE | 2024-05-26 12:45 | Electrocardiogram Report ---
Test Reason : Blood Pressure : */* mmHG Vent. Rate : 88 BPM Atrial Rate : 88 BPM P-R Int : 146 ms QRS Dur : 72 ms QT Int : 364 ms P-R-T Axes : 65 51 50 degrees QTcB Int : 440 ms Normal sinus rhythm Normal ECG No previous ECGs available Confirmed by Denis Blair ([id number]) on 05/26/2024 12:45:05 PM Referred By: REFERRED SELF Confirmed By: Denis Blair
--- NOTE | 2024-05-26 12:49 | Electrocardiogram Report ---
Test Reason : Blood Pressure : */* mmHG Vent. Rate : 74 BPM Atrial Rate : 74 BPM P-R Int : 146 ms QRS Dur : 80 ms QT Int : 432 ms P-R-T Axes : 68 26 49 degrees QTcB Int : 479 ms Normal sinus rhythm Nonspecific ST abnormality Abnormal ECG When compared with ECG of 25-May-2024 17:42, (unconfirmed) No significant change was found Confirmed by Denis Blair ([id number]) on 05/26/2024 12:49:24 PM Referred By: REFERRED SELF Confirmed By: Denis Blair
[2024-05-27 13:22] LABS: Anti Nuclear Antibody Screen NEGATIVE (NEGATIVE)
[2024-05-28 16:21] LABS: Marijuana Quant, GCMS Urine 616 ng/mL (<5)
== END 2024-05-26 13:47 | disposition home or self-care (01) ==
LOC: ED 17:34 → 2N 17:34 → SUATTDRO 21:03 → 2N 23:12